=== PATIENT | female | born 1965 | race Caucasian/White ===

== ENCOUNTER 2016-11-15 18:19 | Emergency (ER) | payer OTHER ==
[~2016-11-15] VITALS: Ht 167.6 cm; Wt 101.0 kg
[~2016-11-15 18:19] MED LIST: ADV25050 INHALATION; ALBU8.5H3 INH; ATOR20TA65 PO; ENAL20TA PO; HYDR12.53 PO; METO-448 PO; SYN15 PO
[2016-11-15 18:22] VITALS: Ht 167.6 cm; Wt 101.0 kg
[2016-11-16 00:59] LABS: URINE BLOOD (Dip) POC Negative (NEGATIVE)
--- NOTE | 2016-11-16 01:16 | ERA ---
ER Documentation Chief Complaint Date/Time DATE: 11/16/16 TIME: 01:15 Chief Complaint Bilateral hand tingling HPI The patient is a 51-year-old female, presenting to the ER because of bilateral hand tingling, right upper extremity cramps that began about 8 AM today. She denies similar symptoms previously. She drank moderately a few days ago. She denies syncope, near syncope, complaints of minimal dizziness, denies neck pain , chest pain, dyspnea, abdominal pain, vomiting, dysuria, diarrhea, constipation. He does not smoke or use any illicit drug, complains of increased stress. He did not take the medication for the last 3 days because she ran out Past medical history: Hypertension, dyslipidemia, hypothyroidism, diabetes mellitus, asthma, bilateral carpal tunnel syndrome, anxiety Past surgical history: None ROS All systems reviewed and are negative except as per history of present illness. Medications Home Meds Active Scripts Levothyroxine Sodium* (Synthroid*) 150 Mcg Tablet, 150 MCG PO BEFORE BREAKFAST, #14 TAB Prov:KELLY HOGUE MD 11/16/16 Enalapril Maleate* (Enalapril Maleate*) 10 Mg Tablet, 10 MG PO DAILY for 14 Days , TAB Prov:KELLY HOGUE MD 11/16/16 Carvedilol* (Coreg*) 3.125 Mg Tablet, 3.125 MG PO DAILY for 14 Days, #60 TAB Prov:KELLY HOGUE MD 11/16/16 Salmeterol Xinaf/Fluticasone* (Advair*) 250-50 Diskus Inhaler, 1 INH INHALATION BID for 30 Days, #1 INHALER Prov:DONN VELAZQUEZ MD 06/04/16 Metoprolol Tartrate* (Lopressor*) 25 Mg Tab, 25 MG PO QHS for 90 Days, TAB 1 Refill Prov:DONN VELAZQUEZ MD 06/04/16 Atorvastatin Calcium (Atorvastatin Calcium) 20 Mg Tablet, 20 MG PO HS for 90 Days, TAB 1 Refill Prov:DONN VELAZQUEZ MD 06/04/16 Enalapril Maleate* (Enalapril Maleate*) 20 Mg Tablet, 20 MG PO BID for ELEVATED BLOOD PRESSURE for 90 Days, TAB 1 Refill Prov:DONN VELAZQUEZ MD 06/04/16 Hydrochlorothiazide (Hydrochlorothiazide) 12.5 Mg Capsule, 12.5 MG PO DAILY for 90 Days, CAP 1 Refill For blood pressure Prov:DONN VELAZQUEZ MD 06/04/16 Levothyroxine Sodium* (Synthroid*) 150 Mcg Tablet, 150 MCG PO BEFORE BREAKFAST for 90 Days, TAB 1 Refill Take on an empty stomach Prov:DONN VELAZQUEZ MD 06/04/16 Reported Medications Albuterol Sulfate* (Proair HFA*) 8.5 Gm Hfa.aer.ad, 2 PUFF INH Q6H Y for WHEEZING AND SOB, INH 11/25/14 Allergies Allergies: Coded Allergies: No Known Allergy (Unverified , 06/01/16) PMhx/Soc History of Surgery: Yes (tubal ligation) Anesthesia Reaction: No Hx Neurological Disorder: No Hx Cardiac Disorders: Yes (Hypertension) Hx Psychiatric Problems: No Hx Miscellaneous Medical Probl: Yes (Hypothyroidism, Hyperlipidemia, DM) Hx Alcohol Use: Yes (ocassionally -[place]) Hx Substance Use: No Hx Tobacco Use: No Smoking Status: Unknown if ever smoked Physical Exam Vitals Vital Signs Date Time Temp Pulse Resp B/P Pulse Ox O2 Delivery O2 Flow Rate FiO2 11/16/16 04:44 98.1 78 16 110/78 98 11/16/16 03:00 55 12 102/82 97 Room Air 11/16/16 00:59 51 18 124/81 97 Room Air 11/15/16 18:22 98.9 79 20 155/84 98 Physical Exam Const: No acute distress. Anxious Head: Atraumatic. Eyes: Normal Conjunctiva. ENT: Normal External Ears, Nose and Mouth. Neck: Full range of motion. No meningismus. Resp: Clear to auscultation bilaterally. Cardio: Regular rate and rhythm, no murmurs. Abd: Soft, non distended, normal bowel sounds, non tender. Skin: No petechiae or rashes. Back: No midline or flank tenderness. Ext: No cyanosis, or edema. Neur: Awake and alert. No focal deficit Psych: Normal Mood and Affect. Result Diagram: 11/16/16 0125 11/16/16 0125 Results 24 hrs Laboratory Tests Test 11/16/16 00:58 11/16/16 01:22 4/6/17 01:25 Bedside Urine pH (LAB) 6.5 Bedside Urine Protein (LAB) 2+ Bedside Urine Glucose (UA) Negative Bedside Urine Ketones (LAB) Negative Bedside Urine Blood Negative Bedside Urine Nitrite (LAB) Negative Bedside Urine Leukocyte Esterase (L Trace Bedside Glucose 89mg/dL White Blood Count 7.710^3/ul Red Blood Count 4.1110^6/ul Hemoglobin 12.4g/dl Hematocrit 37.3% Mean Corpuscular Volume 90.8fl Mean Corpuscular Hemoglobin 30.2pg Mean Corpuscular Hemoglobin Concent 33.2g/dl Red Cell Distribution Width 13.1% Platelet Count 22567^3/UL Mean Platelet Volume 10.6fl Neutrophils % 43.9% Lymphocytes % 43.5% Monocytes % 8.0% Eosinophils % 4.1% Basophils % 0.4% Nucleated Red Blood Cells % 0.0/100WBC Neutrophils # 3.410^3/ul Lymphocytes # 3.310^3/ul Monocytes # 0.610^3/ul Eosinophils # 0.310^3/ul Basophils # 0.010^3/ul Nucleated Red Blood Cells # 0.010^3/ul Prothrombin Time 14.1Sec Prothrombin Time Ratio 1.1 INR International Normalized Ratio 1.09 Activated Partial Thromboplast Time 31.3Sec Sodium Level 141mmol/L Potassium Level 2.7mmol/L Chloride Level 105mmol/L Carbon Dioxide Level 28mmol/L Anion Gap 11 Blood Urea Nitrogen 7mg/dl Creatinine 0.58mg/dl Glucose Level 98mg/dl Calcium Level 8.8mg/dl Magnesium Level 1.5mg/dl Current Medications Medications (Trade) Dose Ordered Sig/Alan Route PRN Reason Start Time Stop Time Status Last Admin Dose Admin Lorazepam 1 mg 1 mg ONCE ONCE PO 11/16/16 01:30 11/16/16 01:31 DC 11/16/16 01:34 Potassium Chloride (KCl 20 MEQ/50 ML SW) 50 ml @ 25 mls/hr ONCE ONCE IVPB 11/16/16 02:30 11/16/16 04:29 DC 11/16/16 02:21 Potassium Chloride (Klor-Con 20) 40 meq ONCE STAT PO 11/16/16 02:09 11/16/16 02:17 DC 11/16/16 02:21 Potassium Chloride (Klor-Con 20) 20 meq ONCE STAT PO 11/16/16 02:09 11/16/16 02:17 DC 11/16/16 02:21 Procedures/[place] [id number] Radiology Main Line: [phone] DIAGNOSTIC IMAGING REPORT Patient: MEGAN MELARA : 1965 Age: 51 Sex: F MR #: [id number] DOS: 11/16/16 0125 Ordering MD: KELLY HOGUE MD Location: E/R Room/Bed: PROCEDURE: CT BRAIN WITHOUT CONTRAST CLINICAL INDICATION: 51-year-old female with headaches. TECHNIQUE: The study was performed utilizing a [employer] VCT 64-slice CT scanner. Direct axial sections were obtained from the foramen magnum to the vertex without the use of intravenous contrast material. Sagittal and coronal reformations were obtained. One or more the following dose reduction techniques were utilized: automated exposure control, adjustment of the mA and/or kV according to patient's size or use of iterative reconstruction technique. The images were viewed on a PACS workstation. CTD/vol = 45.0 mGy; Total Exam DLP = 720.2 mGy-cm. COMPARISON: None. FINDINGS: The ventricles have a normal size, shape and position. There is no evidence for mass effect or midline shift. There are no intracranial areas of abnormal attenuation. There is no evidence for acute intra or extra-axial blood. The bony calvarium is intact. The partially visualized paranasal sinuses and mastoid air cells are without significant abnormal soft tissue. IMPRESSION: Unremarkable noncontrast CT scan of the brain. .Adrian Menjivar MD, MD Date Time Electronically viewed and signed by .Adrian Menjivar MD, MD on 11/16/2016 02:12 .M/ CC: KELLY HOGUE MD MEDICAL MAKING DECISION: The patient is a 51-year-old female, presenting with acute anxiety, acute hypokalemia, medical noncompliance. She was treated with Ativan 1 mg p.o. for acute anxiety, potassium chloride 20 mEq iv and potassium chloride 60 mg p.o. with good response. The differential diagnoses considered include but are not limited to central causes such as cerebellar infarct, cerebellar hemorrhage, cerebellar tumor, acoustic neuroma, peripheral causes such as benign positional vertigo, labyrinthitis, medication, Meniere's disease. Departure Diagnosis: Primary Impression: Acute anxiety Additional Impressions: Hypokalemia Medication refill Condition: Good Comments I refill her medication for 2 weeks I discussed the findings with the patient. I advised the patient to follow-up with the primary physician in about 1-2 days, sooner if needed and return if any concern. KELLY HOGUE MD Nov 16, 2016 01:16
[2016-11-16] MEDS ORDERED: LORAZEPAM 1 MG TAB PO ONE (01:30)
[2016-11-16 01:46] LABS: ADD SCAN DIFF NO; BASOPHILS % 0.4 % (0.0-2.0); EOSINOPHILS # 0.3 10^3/ul (0.0-0.5); EOSINOPHILS % 4.1 % (0.0-7.0); HEMATOCRIT 37.3 % (37.0-47.0); HEMOGLOBIN 12.4 g/dl (12.0-16.0); LYMPHOCYTES # 3.3 10^3/ul (0.8-2.9); LYMPHOCYTES % 43.5 % (15.0-51.0); MEAN CORPUSCULAR HEMOGLOBIN 30.2 pg (29.0-33.0); MEAN CORPUSCULAR HGB CONC 33.2 g/dl (32.0-37.0); MEAN CORPUSCULAR VOLUME 90.8 fl (82.0-101.0); MEAN PLATELET VOLUME 10.6 fl (7.4-10.4); MONOCYTE # 0.6 10^3/ul (0.3-0.9); NEUTROPHIL # 3.4 10^3/ul (1.6-7.5); NEUTROPHILS % 43.9 % (39.0-77.0); PLATELET COUNT 268 10^3/UL (140-415); RED BLOOD COUNT 4.11 10^6/ul (4.20-5.40); RED CELL DISTRIBUTION WIDTH 13.1 % (11.5-14.5); WHITE BLOOD COUNT 7.7 10^3/ul (4.8-10.8)
[2016-11-16 01:58] LABS: CREATININE 0.58 mg/dl (0.44-1.00)
[2016-11-16 01:59] LABS: CALCIUM 8.8 mg/dl (8.4-10.2)
[2016-11-16 02:06] LABS: POTASSIUM 2.7 mmol/L (3.5-5.1)
[2016-11-16] MEDS ORDERED: POTASSIUM CHLORIDE (SR) 20 MEQ TAB PO STA ×2 (02:09)
--- NOTE | 2016-11-16 02:12 | RADRPT ---
PROCEDURE: CT BRAIN WITHOUT CONTRAST CLINICAL INDICATION: 51-year-old female with headaches. TECHNIQUE: The study was performed utilizing a [employer] VCT 64-slice CT scanner. Direct axia l sections were obtained from the foramen magnum to the vertex without the use of intravenous contra st material. Sagittal and coronal reformations were obtained. One or more the following dose reduct ion techniques were utilized: automated exposure control, adjustment of the mA and/or kV according t o patient's size or use of iterative reconstruction technique. The images were viewed on a PACS [employer]. CTD/vol = 45.0 mGy; Total Exam DLP = 720.2 mGy-cm. COMPARISON: None. FINDINGS: The ventricles have a normal size, shape and position. There is no evidence for mass effect or midl ine shift. There are no intracranial areas of abnormal attenuation. There is no evidence for acute intra or extra-axial blood. The bony calvarium is intact. The partially visualized paranasal sinuse s and mastoid air cells are without significant abnormal soft tissue. IMPRESSION: Unremarkable noncontrast CT scan of the brain. .Adrian Menjivar MD, MD Date Time Electronically viewed and signed by .Adrian Menjivar MD, on 11/16/2016 02:12 .M/
[2016-11-16] MEDS ORDERED: POTASSIUM CHLORIDE 50 ML IVPB ONE (02:30)
[2016-11-16] MEDS ORDERED: CARV3.12 PO (02:30)
[2016-11-16] MEDS ORDERED: ENAL10TA PO (02:30)
[2016-11-16] MEDS ORDERED: SYN15 PO (02:31)
[2016-11-16 02:47] LABS: PARTIAL THROMBOPLASTIN TIME 31.3 Sec (25.0-35.0)
[2016-11-16 02:48] LABS: INR 1.09; PROTIME 14.1 Sec (12.2-14.2); PT RATIO 1.1
[2016-11-16 04:44] VITALS: BP 110/78; PULSE 78; RESP 16; TEMP 98.1
== END 2016-11-16 04:45 | disposition home or self-care (01) ==
LOC: E/R 18:19
DX: F41.9 Anxiety disorder, unspecified (principal); E87.6 Hypokalemia; I10 Essential (primary) hypertension; E11.9 Type 2 diabetes mellitus without complications; E03.9 Hypothyroidism, unspecified; J45.909 Unspecified asthma, uncomplicated; Z76.0 Encounter for issue of repeat prescription
CPT/HCPCS: 70450; 80048; 81003; 82962; 83735; 85025; 85610; 85730; J3480; Z7610; 36415

== ENCOUNTER 2017-11-30 21:48 | Emergency (ER) | END 2017-12-01 02:10 | disposition home or self-care (01) ==

== ENCOUNTER 2018-03-15 12:58 | Emergency (ER) | END 2018-03-15 16:53 | disposition home or self-care (01) ==

== ENCOUNTER 2019-01-28 00:33 | Emergency (ER) | payer OTHER ==
[~2019-01-28] VITALS: Ht 157.5 cm; Wt 108.0 kg
[~2019-01-28 00:33] MED LIST changes: -ALBU8.5H3 INH; +ALBU8.5H8 INH; +CARV3.12 PO; +ENAL10TA PO; +LEVO150T87 PO; +MECL12.574 PO; -SYN15 PO
[2019-01-28 00:37] VITALS: Ht 157.5 cm; Wt 108.0 kg
[2019-01-28] MEDS ORDERED: METHYLPREDNISOLONE 125 MG INJ IM ONE (05:30)
--- NOTE | 2019-01-28 05:35 | ERD ---
ER Documentation Chief Complaint Chief Complaint SOB X1DAY; HX OF ASTHMA; COUGHING X2DAYS HPI Patient is a 53 years old female with PMHx of Asthma presenting to the clinic for cough and SOB x 2 days. Patient reports running out of Albuterol HFA and admits to worsening cough with green sputum, throat pain, chills, bilateral ear pruritus. Patient denies taking OTC medication. Patient denies chest pain, coryza, abdominal pain, nausea, emesis. ROS All systems reviewed and are negative except as per history of present illness. Medications Home Meds Active Scripts Methylprednisolone* (Medrol* DOSE PACK) 4 Mg/Dose-Pack Tab.ds.pk, 4 MG PO . DIRECTED for 5 Days, PACKET Prov:VINITA KWONG PA-C 01/28/19 Amoxicillin/Potassium Clav (Amox-Clav 500-125 mg Tablet) 500-125 mg Tab, 1 TAB PO BID for 7 Days, TAB Prov:VINITA KWONG PA-C 01/28/19 Acetaminophen* (Tylophen*) 500 Mg Capsule, 1 CAP PO Q6H PRN for PAIN AND OR ELEVATED TEMP, #20 CAP Prov:VINITA KWONG PA-C 01/28/19 Albuterol Sulfate* (Albuterol Sulfate* Neb) 0.083%-3 Ml Neb, 2.5 MG NEB Q4 PRN for SHORTNESS OF BREATH, #30 EA Prov:VINITA KWONG PA-C 01/28/19 Meclizine Hcl* (Antivert*) 12.5 Mg Tab, 12.5 MG PO Q6H PRN for DIZZINESS, #20 TAB Prov:KATHRYN BANERJEE PA-C 03/15/18 Levothyroxine Sodium* (Synthroid*) 150 Mcg Tablet, 150 MCG PO BEFORE BREAKFAST, #14 TAB Prov:KELLY HOGUE MD 11/16/16 Enalapril Maleate* (Enalapril Maleate*) 10 Mg Tablet, 10 MG PO DAILY for 14 Days, TAB Prov:KELLY HOGUE MD 11/16/16 Carvedilol* (Coreg*) 3.125 Mg Tablet, 3.125 MG PO DAILY for 14 Days, #60 TAB Prov:KELLY HOGUE MD 11/16/16 Salmeterol Xinaf/Fluticasone* (Advair*) 250-50 Diskus Inhaler, 1 INH INHALATION BID for 30 Days, #1 INHALER Prov:DONN VELAZQUEZ MD 06/04/16 Metoprolol Tartrate* (Lopressor*) 25 Mg Tab, 25 MG PO QHS for 90 Days, TAB 1 Refill Prov:DONN VELAZQUEZ MD 06/04/16 Atorvastatin Calcium (Atorvastatin Calcium) 20 Mg Tablet, 20 MG PO HS for 90 Days, TAB 1 Refill Prov:DONN VELAZQUEZ MD 06/04/16 Enalapril Maleate* (Enalapril Maleate*) 20 Mg Tablet, 20 MG PO BID for ELEVATED BLOOD PRESSURE for 90 Days, TAB 1 Refill Prov:DONN VELAZQUEZ MD 06/04/16 Hydrochlorothiazide (Hydrochlorothiazide) 12.5 Mg Capsule, 12.5 MG PO DAILY for 90 Days, CAP 1 Refill For blood pressure Prov:DONN VELAZQUEZ MD 06/04/16 Levothyroxine Sodium* (Synthroid*) 150 Mcg Tablet, 150 MCG PO BEFORE BREAKFAST for 90 Days, TAB 1 Refill Take on an empty stomach Prov:ODNN VELAZQUEZ MD 06/04/16 Reported Medications Albuterol Sulfate* (Proair HFA*) 8.5 Gm Hfa.aer.ad, 2 PUFF INH Q6H PRN for WHEEZING AND SOB, INH 11/25/14 Allergies Allergies: Coded Allergies: No Known Allergy (Unverified , 03/15/18) PMhx/Soc History of Surgery: Yes (tubal ligation) Anesthesia Reaction: No Hx Neurological Disorder: No Hx Respiratory Disorders: Yes (Asthma) Hx Cardiac Disorders: Yes (HTN) Hx Psychiatric Problems: No Hx Miscellaneous Medical Probl: Yes (THYROID PROBLEM) Hx Alcohol Use: Yes (OCCASSIONAL) Hx Substance Use: No Hx Tobacco Use: No Physical Exam Vitals Vital Signs Date Temp Pulse Resp B/P (MAP) Pulse Ox O2 O2 Flow FiO2 Time Delivery Rate 01/28/19 98.1 80 22 138/73 96 00:37 (94) Physical Exam Const: No acute distress Head: Atraumatic Eyes: Normal Conjunctiva ENT: Normal Nose and Mouth. Oropharyngeal exam unremarkable. Bilateral ear canal and TM erythematous without perforation or discharge. Neck: Full range of motion. No meningismus. Resp: Decreased breath sounds bilaterally. No obvious signs of respiratory distress. Cardio: Regular rate and rhythm, no murmurs Neur: Awake and alert Psych: Normal Mood and Affect Results 24 hrs Current Medications Medications Dose Sig/Alan Start Time Status Last (Trade) Ordered Route PRN Stop Time Admin Dose Reason Admin 125 mg ONCE ONCE 01/28/19 DC 01/28/19 Methylprednis IM 05:30 05:34 olone Sodium 01/28/19 05:31 Succinate (Solu-Medrol) Procedures/MDM Patient was seen and evaluated for cough. Ear exam reveals Otitis Media b/l. CXR is unremarkable. Patient reports significant improvement with Solumedrol IM. Patient is stable and ready for discharge. F/U with PCP. Patient will be given Augmentin 500mg PO BID x 7 days, Albuterol HFA, and Medrol Dosepak. Departure Diagnosis: Primary Impression: Cough Additional Impression: Otitis media of both ears Otitis media type: suppurative Chronicity: acute Recurrence: non- recurrent Spontaneous tympanic membrane rupture: without spontaneous rupture Qualified Codes: H66.003 - Acute suppurative otitis media without spontaneous rupture of ear drum, bilateral Condition: Stable Patient Instructions: Cough, Chronic, Uncertain Cause, (Adult), Otitis Media, Abx Tx (Adult) Referrals: [facility] Additional Instructions: Patient advised to return to the ED immediately for new or worsening symptoms. Patient advised to follow up with primary care provider in the next 24-48 hours. Patient verbalized understanding and agrees with treatment plan and course of action. If patient has no primary care they may follow up with [facility] + [facility] [address] [place] [id number] or [facility] [address] [place] [address] or [facility] [address] [place] [address] VINITA KWONG PA-C Jan 28, 2019 05:34
[2019-01-28] MEDS ORDERED: ACET500C5 PO (06:49)
[2019-01-28] MEDS ORDERED: ALBU2.5V3 NEB (06:49)
[2019-01-28] MEDS ORDERED: MED4DP PO (06:50)
[2019-01-28] MEDS ORDERED: AMOX1TAB9 PO (06:50)
[2019-01-28] MEDS ORDERED: ALBU8.5H8 INH (07:02)
[2019-01-28 07:06] VITALS: BP 147/80; PULSE 63; RESP 18
== END 2019-01-28 07:07 | disposition home or self-care (01) ==
LOC: FTE 00:33
DX: H66.003 Acute suppurative otitis media without spontaneous rupture of ear drum, bilateral (principal); I10 Essential (primary) hypertension; J45.901 Unspecified asthma with (acute) exacerbation
CPT/HCPCS: 71046; 96372; J2930; Z7502